=== PATIENT | male | born 1935 | race Caucasian/White ===

== ENCOUNTER → 2016-11-07 | Outpatient (CLI) | payer OTHER, MEDICARE ==
[2016-11-07 14:09] LABS: BUN/CREATININE RATIO 17.27 (6-20); CALCIUM 8.8 mg/dL (8.7-10.7)
== END ==
LOC: LAB 13:42
PROVIDERS: ATTEND Internal Medicine Cardiovascular Disease
DX: R06.09 Other forms of dyspnea (principal)
CPT/HCPCS: 36415; 80048

== ENCOUNTER → 2016-12-25 | Outpatient (CLI) | payer OTHER, MEDICARE ==
--- NOTE | 2016-12-25 11:47 | PE ---
[facility] [place] [facility] [email or web address]
--- NOTE | 2016-12-25 16:49 | DI ---
History: Dyspnea Comparison: January 03, 2014 Findings: Heart size normal. The patient is status post coronary artery bypass graft. Pacemaker is present Pulmonary vasculature is normal No pulmonary infiltrate. No pleural effusion. Mild aortic atherosclerosis. Impression No acute pulmonary disease. Status post coronary artery bypass graft.
== END ==
LOC: RT 10:53
PROVIDERS: ATTEND Internal Medicine Cardiovascular Disease
DX: R06.00 Dyspnea, unspecified (principal); Z95.1 Presence of aortocoronary bypass graft; Z95.0 Presence of cardiac pacemaker
CPT/HCPCS: 71020; 94060